=== PATIENT | male | born 1970 | race Caucasian/White ===

== ENCOUNTER 2016-05-27 14:47 | Emergency (ER) | payer SELFPAY ==
[2016-05-27 13:53] LABS: BASOPHILS 0.3 %; BASOPHILS ABSOLUTE 0.03 10/3/uL (0.0-0.16); EOSINOPHILS 2.3 %; EOSINOPHILS ABSOLUTE 0.26 10/3/uL (0.0-0.53); ER CBC TAT 0 Hrs 05 Mins; HEMATOCRIT 46.5 % (40.0-51.0); HEMOGLOBIN 16.5 g/dL (13.6-17.8); IMMATURE GRANULOCYTES 0.7 %; IMMATURE GRANULOCYTES ABSOLUTE 0.08 10/3/uL (0.0-0.11); LYMPHOCYTES 22.3 %; LYMPHOCYTES ABSOLUTE 2.49 10/3/uL (0.67-4.30); MANUAL DIFF NO %; MEAN CORPUS HGB CONC 35.5 g/dL (32.0-36.0); MEAN CORPUSCULAR HEMOGLOB 29.5 pg (26.0-34.0); MEAN CORPUSCULAR VOLUME 83.2 fL (80-100); MEAN PLATELET VOLUME 11.1 fL (9.2-13.0); MONOCYTES 6.3 %; NEUTROPHILS 68.1 %; NEUTROPHILS ABSOLUTE 7.61 10/3/uL (2.02-8.40); PLATELET COUNT 308 10/3/uL (150-400); RED CELL COUNT 5.59 10/6/uL (4.7-6.1); WHITE BLOOD CELLS 11.2 10/3/uL (4.5-10.5)
[2016-05-27 14:04] LABS: BUN (BLOOD UREA NITROGEN) 16 MG/DL (6-23); CALCIUM, SERUM 8.6 MG/DL (8.5-10.4); CHLORIDE, SERUM 98 MMOL/L (96-112); CO2 (CARBON DIOXIDE) 26 MMOL/L (24-34); CREATININE 1.02 MG/DL (0.70-1.30); GFR AFRICAN AMERICAN 102 ML/MIN (>=60); GFR NON AFRICAN AMERICAN 88 ML/MIN (>=60); GLUCOSE, SERUM 308 MG/DL (60-99); POTASSIUM, SERUM 3.8 MMOL/L (3.5-5.3); SODIUM, SERUM 136 MMOL/L (135-148)
[~2016-05-27 14:47] MED LIST: ASAB PO; GLUCOPHAGE1000 MG PO; GLUCOTROL5 PO; GLUCPH PO; MONODOX100 MG PO; PRILO PO; PRIN20 PO; TOPXL50 PO; ZESTORETIC1 TA1 PO
== END 2016-05-27 16:07 | disposition home or self-care (01) ==
LOC: ER 14:47
PROVIDERS: Nurse Practitioner
DX: M54.5 Low back pain (principal); I10 Essential (primary) hypertension; E11.9 Type 2 diabetes mellitus without complications; Z88.0 Allergy status to penicillin; Z88.8 Allergy status to other drugs, medicaments and biological substances; Z79.84 Long term (current) use of oral hypoglycemic drugs; Z79.899 Other long term (current) drug therapy
CPT/HCPCS: 72131; 80048; 82962; 85025; 96372; 96374; 99284; A9270-GY; J1170; J1885; J2800